=== PATIENT | male | born 1970 | race Caucasian/White ===

== ENCOUNTER 2020-07-07 17:36 | Inpatient (IN) ==
[2020-07-07] MEDS ORDERED: IOPAMIDOL 100 ML BOTTLE IV ONE (17:37)
[2020-07-07] MEDS ORDERED: LIDOCAINE 2% URO-JET 5 ML JEL.PF.APP UR ONE (18:09)
[2020-07-07] MEDS ORDERED: LIDOCAINE JEL 2% 1 TUBE 5ML TOPICAL ONE (18:11)
[2020-07-07] MEDS ORDERED: HYDROmorphone 0.5 MG/0.5 ML SYRINGE IM ONE (18:24)
[2020-07-07] MEDS ORDERED: HYDROmorphone 0.5 MG/0.5 ML SYRINGE IV ONE (18:41)
[2020-07-07 19:26] LABS: Basophils # (Auto) 0.04 K/mcL (0.00-0.30); Basophils % (Auto) 0.2 % (0.0-2.0); Eosinophils # (Auto) 0.06 K/mcL (0.00-0.70); Eosinophils % (Auto) 0.3 % (0.0-7.0); Granulocytes % (Auto) 86.3 % (38.0-78.0); Hematocrit 44.1 % (40.1-51.0); Hemoglobin 15.5 g/dL (13.7-17.5); Lymphocytes # (Auto) 1.18 K/mcL (1.50-4.80); Lymphocytes % (Auto) 6.3 % (15.5-49.0); Mean Cell Volume 85.3 fL (80.0-100.0); Mean Corpuscular HGB Conc 35.1 g/dL (31.0-36.0); Mean Platelet Volume 10.3 fL (7.4-10.4); Monocytes % (Auto) 6.9 % (1.0-12.0); Platelet Count 303 K/mcL (140-440); RBC 5.17 M/mcL (4.63-6.08); Red Cell Distribution Width 12.8 % (11.5-14.5); WBC 18.8 K/mcL (4.50-11.00)
[2020-07-07 19:31] LABS: Appearance,Urine CLEAR; Bacteria,Urine 0 /hpf (0); Bilirubin,Urine NEG (NEG); Color,Urine YELLOW; Culture Indicated,Urine NO; Glucose,Urine (UA) NEGATIVE (NEG); Ketones,Urine 5/TR mg/dL (NEG); Leukocyte Esterase,Urine NEG /uL (NEG); Mucus,Urine FEW /hpf (0); Nitrate,Urine NEG (NEG); Protein,Urine 30 mg/dL (NEG); Specific Gravity,Urine 1.019 (1.000-1.035); Urine Blood NEG mg/dL (<0.03); Urine Hyaline Cast 1 /lpf (0-2); Urine RBC 2 /hpf (0-1); Urine Squamous Epithelial Cell 0 /hpf (0-4); Urine WBC 2 /hpf (0-4); Urobilinogen,Urine NEG (NEG)
[2020-07-07] MEDS ORDERED: 0.9 % SODIUM CHLORIDE 1,000 ML IV ONE ×2 (19:38→21:14)
--- NOTE | 2020-07-07 19:45 | Emergency Department Note ---
Male Urogenital HPI General Chief complaint: Urogenital-Male Stated complaint: penis pain Time Seen by Provider: 07/07/20 18:01 Source: patient and EMS Mode of arrival: EMS Limitations: no limitations History of Present Illness HPI Narrative: Narrative: Patient is a 50-year-old male who comes into the emergency department today with plaint of pain at his urethra and penis. Patient reports that this began about 1 week ago. He soaked the penis with wet wipes and applied chewing tobacco to his penis to see if this would help. Patient reports that he has been unable to void since last night. He has had redness, and to his penis. He denies any trauma to his penis. Apparently police had went to his home today for an eviction notice, and they were concerned that perhaps he had injured himself with a self-inflicted injury with a metal lin. Patient denies this and denies any injuries to his penis. He has not applied any other items to his penis than the wet wipes and chewing tobacco. He denies being sexually active. He has not had any abdominal pain, flank pains, nausea, vomiting. He denies any fevers or chills. He has not had any cough, shortness of breath, or difficulty breathing. Related Data Home Medications Medication Instructions Recorded Confirmed No Known Home Meds 07/07/20 07/07/20 Allergies Allergy/AdvReac Type Severity Reaction Status Date / Time NO KNOWN DRUG ALLERGIES Allergy Unknown NO Uncoded 04/16/15 12:13 ALLERGIES Review of Systems ROS ROS Narrative: Narrative: Constitutional: Denies fever and chills Eyes: Denies vision change ENT ED: Denies ear pain and throat pain Cardiovascular: Denies chest pain and palpitations Respiratory: Denies shortness of breath and cough Gastrointestinal: Denies abdominal pain, nausea, vomiting, diarrhea and constipation Genitourinary: Reports as per HPI; Denies dysuria, frequency, testicular pain and testicular mass Musculoskeletal: Denies back pain and joint swelling Integumentary: Denies rash and lesions Neurological: Denies headache, weakness and confusion Psychiatric: Denies anxiety, depression, suicidal thoughts, homicidal thoughts, auditory hallucinations and visual hallucinations Endocrine: Denies fatigue and heat or cold intolerance Hematological/Lymphatic: Denies easy bleeding and easy bruising [facility] Narrative Patient History Narrative: Narrative: Medical/Surgical/Family History All Active Problems (Updated 07/07/20 @ 21:50 by KATIE Perez) Acute retention of urine (Acute) Social History Smoking Status: Current every day smoker Exam Narrative Narrative: Narrative: General Limitations: no limitations General appearance: alert and in no apparent distress Eye Eye: Present normal appearance, PERRL and EOMI; Absent scleral icterus and conjunctival injection ENT ENT: Present normal oropharynx and mucous membranes moist Neck Neck: Present normal inspection and full ROM; Absent meningismus and lymphadenopathy Chest Chest: Present normal inspection and symmetric chest wall rise Respiratory Respiratory: Present normal lung sounds bilaterally; Absent respiratory distress, wheezes, stridor, accessory muscle use and prolonged expiratory phase Cardiovascular Cardiovascular: Present normal rhythm, tachycardia, normal heart sounds, +S1 and +S2 Adbominal Abdominal: Present soft and normal bowel sounds; Absent distention, tenderness, guarding, rebound, rigidity, organomegaly and mass Expanded : Present other (Circumcised male without testicular tenderness or testicular swelling. No testicular nodules or epididymal tenderness. No scrotal swelling. No urethral discharge. At the ventral side of glans penis near the mo there is a 2 cm x 2 cm light yellow area of abrasion with light brown scab edges. There is erythema and mild swelling to the shaft of penis.) Extremities Extremities: Present normal inspection, full ROM and normal capillary refill; Absent pedal edema, pretibial edema and calf tenderness Back Back: Present full ROM; Absent CVA tenderness (R) and CVA tenderness (L) Neurological Neurological: Present alert, oriented X3 and CN II-XII intact Psychiatric Psychiatric: Present normal affect, normal mood, polite and pleasant; Absent homicidal ideation and suicidal ideation Skin Skin: Present warm, dry and normal color Course Course Course Narrative: 2154 - I was able to consult with urologist, Dr. Brito who is in [place] this evening about the patient. Gave a description of the assessment findings on the penis to Dr. Brito, and he feels that may need to look for other sources of infection that would be causing the high white count and elevated lactic acid. He did recommend to perhaps obtain a noncontrast CT of abdomen pelvis and to particularly look for Airgas within the penis or scrotum. 2214 - Report given to Dr. Luna in the emergency department who will assume care at 2200 due to shift change. I have ordered 1 g Rocephin IV for the patient to be given as well as ordered the noncontrast CT of abdomen and pelvis. Patient resting comfortably at this time in room E3. Vital Signs Vital signs: Vital Signs Temperature 97.6 F 07/07/20 17:36 Pulse Rate 128 H 07/07/20 17:36 Respiratory Rate 24 H 07/07/20 17:36 Blood Pressure 133/77 07/07/20 17:36 Pulse Oximetry (%) 99 07/07/20 17:36 Temperature 97.6 F 07/07/20 17:36 Pulse Rate 118 H 07/07/20 22:16 Respiratory Rate 18 07/07/20 21:07 Blood Pressure 158/93 07/07/20 22:16 Pulse Oximetry (%) 95 07/07/20 22:16 [facility] MDM Narrative Medical decision making narrative: Narrative: Reviewed the chest x-ray today with Dr. Luna that does not show any definite sign of pneumonia. Patient's white count today is 18.8 lactic acid 4.8. Potassium was low at 3.0 and gave patient 40 mEq of potassium by mouth. Patient has tachycardia and received 2 L normal saline. Lab Data Result diagrams: 07/07/20 18:40 07/07/20 18:40 Labs: Lab Results 07/07/20 07/07/20 07/07/20 Range/Units 18:39 18:39 18:40 WBC 18.8 H (4.50-11.00) K/mcL RBC 5.17 (4.63-6.08) M/mcL Hgb 15.5 (13.7-17.5) g/dL Hct 44.1 (40.1-51.0) % MCV 85.3 (80.0-100.0) fL MCH 30.0 (26.0-34.0) pg MCHC 35.1 (31.0-36.0) g/dL RDW 12.8 (11.5-14.5) % Plt Count 303 (140-440) K/mcL MPV 10.3 (7.4-10.4) fL Gran % 86.3 H (38.0-78.0) % Lymph % (Auto) 6.3 L (15.5-49.0) % [place] % (Auto) 6.9 (1.0-12.0) % Eos % (Auto) 0.3 (0.0-7.0) % Baso % (Auto) 0.2 (0.0-2.0) % Gran # 16.23 H (1.80-8.00) K/mcL Lymph # (Auto) 1.18 L (1.50-4.80) K/mcL [place] # (Auto) 1.30 H (0.10-0.90) K/mcL Eos # (Auto) 0.06 (0.00-0.70) K/mcL Baso # (Auto) 0.04 (0.00-0.30) K/mcL VBG Lactic Acid (0.5-2.0) mmol/L Sodium (133-145) mmol/L Potassium (3.3-5.1) mmol/L Chloride (96-108) mmol/L Carbon Dioxide (22-30) mmol/L Anion Gap (8-16) BUN (6-20) mg/dl Creatinine (0.7-1.2) mg/dl GFR Calculation Glucose (70-105) mg/dL Calcium (8.6-10.4) mg/dl Total Bilirubin (0.0-1.0) mg/dL AST (0-37) U/l ALT (0-40) U/l Alkaline Phosphatase (39-117) U/L Total Protein (5.9-8.4) gm/dL Albumin (3.2-5.2) gm/dL Globulin (2.2-3.7) gm/dL Albumin/Globulin Ratio (1.0-2.3) Urine Color Yellow Urine Appearance Clear Urine pH 7.0 (5.0-9.0) Ur Specific [place] 1.019 (1.000-1.035) Urine Protein 30 A (NEG) mg/dL Urine Glucose (UA) Negative (NEG) mg/dL Urine Ketones 5/tr A (NEG) mg/dL Urine Occult Blood Neg (<0.03) mg/dL Urine Nitrate Neg (NEG) Urine Bilirubin Neg (NEG) mg/dL Urine Urobilinogen Neg (NEG) mg/dL Ur Leukocyte Esterase Neg (NEG) /uL Urine RBC 2 H (0-1) /hpf Urine WBC 2 (0-4) /hpf Ur Squamous Epith Cells 0 (0-4) /hpf Urine Bacteria 0 (0) /hpf Hyaline Casts 1 (0-2) /lpf Urine Mucus Few (0) /hpf Ur Culture Indicated? No Syphilis Serology Non-reactive (NONREACTIVE) 07/07/20 07/07/20 Range/Units 18:40 19:51 WBC (4.50-11.00) K/mcL RBC (4.63-6.08) M/mcL Hgb (13.7-17.5) g/dL Hct (40.1-51.0) % MCV (80.0-100.0) fL MCH (26.0-34.0) pg MCHC (31.0-36.0) g/dL RDW (11.5-14.5) % Plt Count (140-440) K/mcL MPV (7.4-10.4) fL Gran % (38.0-78.0) % Lymph % (Auto) (15.5-49.0) % [place] % (Auto) (1.0-12.0) % Eos % (Auto) (0.0-7.0) % Baso % (Auto) (0.0-2.0) % Gran # (1.80-8.00) K/mcL Lymph # (Auto) (1.50-4.80) K/mcL [place] # (Auto) (0.10-0.90) K/mcL Eos # (Auto) (0.00-0.70) K/mcL Baso # (Auto) (0.00-0.30) K/mcL VBG Lactic Acid 4.8 H* (0.5-2.0) mmol/L Sodium 143 (133-145) mmol/L Potassium 3.0 L (3.3-5.1) mmol/L Chloride 103 (96-108) mmol/L Carbon Dioxide 18 L (22-30) mmol/L Anion Gap 22.0 H (8-16) BUN 10 (6-20) mg/dl Creatinine 1.3 H (0.7-1.2) mg/dl GFR Calculation 64 Glucose 96 (70-105) mg/dL Calcium 9.5 (8.6-10.4) mg/dl Total Bilirubin 0.5 (0.0-1.0) mg/dL AST 27 (0-37) U/l ALT 30 (0-40) U/l Alkaline Phosphatase 51 (39-117) U/L Total Protein 6.7 (5.9-8.4) gm/dL Albumin 3.9 (3.2-5.2) gm/dL Globulin 2.8 (2.2-3.7) gm/dL Albumin/Globulin Ratio 1.4 (1.0-2.3) Urine Color Urine Appearance Urine pH (5.0-9.0) Ur Specific [place] (1.000-1.035) Urine Protein (NEG) mg/dL Urine Glucose (UA) (NEG) mg/dL Urine Ketones (NEG) mg/dL Urine Occult Blood (<0.03) mg/dL Urine Nitrate (NEG) Urine Bilirubin (NEG) mg/dL Urine Urobilinogen (NEG) mg/dL Ur Leukocyte Esterase (NEG) /uL Urine RBC (0-1) /hpf Urine WBC (0-4) /hpf Ur Squamous Epith Cells (0-4) /hpf Urine Bacteria (0) /hpf Hyaline Casts (0-2) /lpf Urine Mucus (0) /hpf Ur Culture Indicated? Syphilis Serology (NONREACTIVE) Discharge Plan Patient/Caregiver Discharge Instructions Pt seen by INSPECTOR AIDE/PA only: No Clinical Impression: Acute retention of urine Patient Disposition: Still a Patient Follow up with: Maged Everett MD [Primary Care Provider] - Prescriptions: No Action No Known Home Meds RF: 0
[2020-07-07 19:53] LABS: ALT/SGPT 30 U/l (0-40); AST/SGOT 27 U/l (0-37); Albumin 3.9 gm/dL (3.2-5.2); Albumin/Globulin Ratio 1.4 (1.0-2.3); Alkaline Phosphatase 51 U/L (39-117); Bilirubin,Total 0.5 mg/dL (0.0-1.0); Blood Urea Nitrogen 10 mg/dl (6-20); Calcium 9.5 mg/dl (8.6-10.4); Carbon Dioxide 18 mmol/L (22-30); Chloride 103 mmol/L (96-108); Globulin 2.8 gm/dL (2.2-3.7); Glomerular Filtration Rate 64; Glucose 96 mg/dL (70-105)
[2020-07-07] MEDS ORDERED: POTASSIUM CHLORIDE 20 MEQ TABLET PO ONE (20:36)
[2020-07-07] MEDS ORDERED: cefTRIAXone 1 GM VIAL IV ONE (22:11)
[2020-07-08] MEDS ORDERED: ONDANSETRON 4 MG/2 ML VIAL IV PRN (01:27)
[2020-07-08] MEDS ORDERED: ACETAMINOPHEN 325 MG TABLET PO PRN (01:27)
[2020-07-08] MEDS ORDERED: cefTRIAXone 1 GM in DEXTROSE 5% IN WATER 50 ML IV ONE (01:27)
[2020-07-08] MEDS ORDERED: HYDROcodone/APAP 5/325MG TABLET PO ONE (01:40)
[2020-07-08] MEDS: 0.9 % SODIUM CHLORIDE 1,000 ML IV SCH ×3 (02:03→18:24)
--- NOTE | 2020-07-08 03:19 | Emergency Department Note ---
Male Urogenital HPI General Chief complaint: Urogenital-Male Stated complaint: penis pain Time Seen by Provider: 07/07/20 18:01 Source: patient and EMS Mode of arrival: EMS Limitations: no limitations History of Present Illness HPI Narrative: Narrative: See the dictated history and physical by KATIE Cisneros. I have spoken with him multiple times about this individual. He is here because of urinary retention and abdominal discomfort but was found to have a white count of 18, lactic acid 4.8 and to be tachycardic. Related Data Home Medications Medication Instructions Recorded Confirmed No Known Home Meds 07/07/20 07/08/20 Allergies Allergy/AdvReac Type Severity Reaction Status Date / Time NO KNOWN DRUG ALLERGIES Allergy Unknown NO Uncoded 04/16/15 12:13 ALLERGIES Review of Systems ROS ROS Narrative: Narrative: Genitourinary: Reports as per HPI; Denies dysuria, frequency, testicular pain and testicular mass PFSH Narrative Patient History Narrative: Narrative: Medical/Surgical/Family History All Active Problems (Updated 07/08/20 @ 01:11 by Robb Luna DO) Acute retention of urine (Acute) Elevated WBC count (Acute) Elevated lactic acid level (Acute) Sinus tachycardia (Acute) Cellulitis, penis (Acute) Penile lesion (Acute) Social History Smoking Status: Smokeless tobacco Exam Narrative Narrative: Narrative: General: Alert and interactive. Eyes: Extraocular muscles intact. Abdomen: Soft and nontender. External genitalia: Moderate erythema of the penis and scrotum. There are some sores mentioned previously on the ventral aspect and left side-lying areas from the urethral meatus down the anterior ventral aspect and some laterally. They almost look like soft burn eschars. Extremities: No cyanosis or clubbing. Moves all extremities. Psych: Rather serious. No agitation or psychomotor retardation. General Limitations: no limitations General appearance: alert and in no apparent distress Course Vital Signs Vital signs: Vital Signs Temperature 97.6 F 07/07/20 17:36 Pulse Rate 128 H 07/07/20 17:36 Respiratory Rate 24 H 07/07/20 17:36 Blood Pressure 133/77 07/07/20 17:36 Pulse Oximetry (%) 99 07/07/20 17:36 Temperature 98.8 F 07/08/20 02:10 Pulse Rate 117 H 07/08/20 01:00 Respiratory Rate 22 07/08/20 02:10 Blood Pressure 153/92 07/08/20 02:10 Pulse Oximetry (%) 99 07/08/20 02:10 MDM MDM Narrative Medical decision making narrative: Narrative: I am following up after Celestino Leo returns home. Patient's white count 18, lactic acid 4.8, tachycardia in 125-[address] being done because of conversation Celestino had with urologist, Dr. Brito, suggesting that the described cellulitis of the penis etc. would not explain the findings of that high of a white count, lactic acid elevation and tachycardia. A CT scan of the abdomen and pelvis was ordered and comes back with no acute abdominal pelvic pathology. 11:54 PM - I discussed his case with Dr. Kerwin Treviño, hospitalist, who asked about the prostate gland which was not commented on directly or specifically in the CT report. UA was relatively unremarkable. Creatinine slightly elevated at 1.3. He accepts this patient's care as hospitalist. A repeat lactic acid and pro calcitonin are also added to the orders. Lab Data Result diagrams: 07/07/20 18:40 07/07/20 18:40 Labs: Lab Results 07/07/20 07/07/20 07/07/20 Range/Units 18:39 18:39 18:40 WBC 18.8 H (4.50-11.00) K/mcL RBC 5.17 (4.63-6.08) M/mcL Hgb 15.5 (13.7-17.5) g/dL Hct 44.1 (40.1-51.0) % MCV 85.3 (80.0-100.0) fL MCH 30.0 (26.0-34.0) pg MCHC 35.1 (31.0-36.0) g/dL RDW 12.8 (11.5-14.5) % Plt Count 303 (140-440) K/mcL MPV 10.3 (7.4-10.4) fL Gran % 86.3 H (38.0-78.0) % Lymph % (Auto) 6.3 L (15.5-49.0) % [place] % (Auto) 6.9 (1.0-12.0) % Eos % (Auto) 0.3 (0.0-7.0) % Baso % (Auto) 0.2 (0.0-2.0) % Gran # 16.23 H (1.80-8.00) K/mcL Lymph # (Auto) 1.18 L (1.50-4.80) K/mcL [place] # (Auto) 1.30 H (0.10-0.90) K/mcL Eos # (Auto) 0.06 (0.00-0.70) K/mcL Baso # (Auto) 0.04 (0.00-0.30) K/mcL VBG Lactic Acid (0.5-2.0) mmol/L Sodium (133-145) mmol/L Potassium (3.3-5.1) mmol/L Chloride (96-108) mmol/L Carbon Dioxide (22-30) mmol/L Anion Gap (8-16) BUN (6-20) mg/dl Creatinine (0.7-1.2) mg/dl GFR Calculation Glucose (70-105) mg/dL Calcium (8.6-10.4) mg/dl Total Bilirubin (0.0-1.0) mg/dL AST (0-37) U/l ALT (0-40) U/l Alkaline Phosphatase (39-117) U/L Total Protein (5.9-8.4) gm/dL Albumin (3.2-5.2) gm/dL Globulin (2.2-3.7) gm/dL Albumin/Globulin Ratio (1.0-2.3) Urine Color Yellow Urine Appearance Clear Urine pH 7.0 (5.0-9.0) Ur Specific [place] 1.019 (1.000-1.035) Urine Protein 30 A (NEG) mg/dL Urine Glucose (UA) Negative (NEG) mg/dL Urine Ketones 5/tr A (NEG) mg/dL Urine Occult Blood Neg (<0.03) mg/dL Urine Nitrate Neg (NEG) Urine Bilirubin Neg (NEG) mg/dL Urine Urobilinogen Neg (NEG) mg/dL Ur Leukocyte Esterase Neg (NEG) /uL Urine RBC 2 H (0-1) /hpf Urine WBC 2 (0-4) /hpf Ur Squamous Epith Cells 0 (0-4) /hpf Urine Bacteria 0 (0) /hpf Hyaline Casts 1 (0-2) /lpf Urine Mucus Few (0) /hpf Ur Culture Indicated? No Syphilis Serology Non-reactive (NONREACTIVE) 07/07/20 07/07/20 07/08/20 Range/Units 18:40 19:51 00:05 WBC (4.50-11.00) K/mcL RBC (4.63-6.08) M/mcL Hgb (13.7-17.5) g/dL Hct (40.1-51.0) % MCV (80.0-100.0) fL MCH (26.0-34.0) pg MCHC (31.0-36.0) g/dL RDW (11.5-14.5) % Plt Count (140-440) K/mcL MPV (7.4-10.4) fL Gran % (38.0-78.0) % Lymph % (Auto) (15.5-49.0) % [place] % (Auto) (1.0-12.0) % Eos % (Auto) (0.0-7.0) % Baso % (Auto) (0.0-2.0) % Gran # (1.80-8.00) K/mcL Lymph # (Auto) (1.50-4.80) K/mcL [place] # (Auto) (0.10-0.90) K/mcL Eos # (Auto) (0.00-0.70) K/mcL Baso # (Auto) (0.00-0.30) K/mcL VBG Lactic Acid 4.8 H* 2.6 H (0.5-2.0) mmol/L Sodium 143 (133-145) mmol/L Potassium 3.0 L (3.3-5.1) mmol/L Chloride 103 (96-108) mmol/L Carbon Dioxide 18 L (22-30) mmol/L Anion Gap 22.0 H (8-16) BUN 10 (6-20) mg/dl Creatinine 1.3 H (0.7-1.2) mg/dl GFR Calculation 64 Glucose 96 (70-105) mg/dL Calcium 9.5 (8.6-10.4) mg/dl Total Bilirubin 0.5 (0.0-1.0) mg/dL AST 27 (0-37) U/l ALT 30 (0-40) U/l Alkaline Phosphatase 51 (39-117) U/L Total Protein 6.7 (5.9-8.4) gm/dL Albumin 3.9 (3.2-5.2) gm/dL Globulin 2.8 (2.2-3.7) gm/dL Albumin/Globulin Ratio 1.4 (1.0-2.3) Urine Color Urine Appearance Urine pH (5.0-9.0) Ur Specific [place] (1.000-1.035) Urine Protein (NEG) mg/dL Urine Glucose (UA) (NEG) mg/dL Urine Ketones (NEG) mg/dL Urine Occult Blood (<0.03) mg/dL Urine Nitrate (NEG) Urine Bilirubin (NEG) mg/dL Urine Urobilinogen (NEG) mg/dL Ur Leukocyte Esterase (NEG) /uL Urine RBC (0-1) /hpf Urine WBC (0-4) /hpf Ur Squamous Epith Cells (0-4) /hpf Urine Bacteria (0) /hpf Hyaline Casts (0-2) /lpf Urine Mucus (0) /hpf Ur Culture Indicated? Syphilis Serology (NONREACTIVE) Discharge Plan Patient/Caregiver Discharge Instructions Pt seen by COMPENSATION COORDINATOR/PA only: No Clinical Impression: Acute retention of urine, Elevated lactic acid level, Sinus tachycardia, Cellulitis, penis, Penile lesion Elevated WBC count Qualifiers: Leukocytosis type: unspecified Qualified Code(s): D72.829 - Elevated white blood cell count, unspecified Patient Disposition: Xfer As Inpt ([facility]) Discharge Date/Time: 07/08/20 01:12 Interventions Interventions: Condition At Discharge/Admit (ED) Last Done: 07/08/20 01:22
[2020-07-08] MEDS ORDERED: cefTRIAXone 1 GM VIAL ONE (03:28)
[2020-07-08] MEDS: 0.9 % SODIUM CHLORIDE 10 ML SYRINGE IV SCH ×3 (05:03→20:40)
--- NOTE | 2020-07-08 05:36 | XRay Report ---
INDICATION: Leukocytosis TECHNIQUE: PA and lateral upright chest x-ray COMPARISON: None FINDINGS: Lungs: Lungs are negative. No focal pulmonary parenchymal infiltrate or mass Heart, vascular: No significant cardiomegaly. Pulmonary vascularity is normal. No pulmonary edema or pulmonary congestion Mediastinum, manfred: No mediastinal widening. No hilar mass Pleura:No pleural fluid. No pleural-based mass or calcification Thoracic spine, ribs: No thoracic compression fracture. Ribs are negative. No fracture. No lytic lesion IMPRESSION: Negative PA and lateral chest x-ray Interpreted and Authenticated by: Woo Lala 07/08/20
--- NOTE | 2020-07-08 05:45 | Cat Scan Report ---
INDICATION: penile infection/swelling COMPARISON: Previous CT scan dated 08/13/2012 TECHNIQUE: Axial images were obtained through the abdomen and pelvis. Sagittally and coronally reformatted images. 80 mL Isovue 370 injected intravenously. Oral contrast material was not administered FINDINGS: Examination was initially interpreted by [facility] Lung bases:Negative. No pulmonary parenchymal nodule. No pleural fluid or pericardial fluid Liver:Negative. No focal intrahepatic mass. No focal abnormality. Liver contour is smooth. No evidence for cirrhosis Gallbladder, bilary:No calcified gallstones. No gallbladder wall thickening. No dilated intra or extrahepatic bile ducts. Spleen:No splenomegaly. Normal enhancement of splenic and portal veins. Pancreas:No pancreatic mass. No peripancreatic abnormality Adrenal glands:Negative Kidneys, ureters, bladder: Central parapelvic cyst in the left kidney. No solid renal mass. No hydronephrosis. No obstructing or nonobstructing calculi. There is no hydroureter. No ureteral stone There is a Marcial catheter within the urinary bladder Gastrointestinal:No detectable colonic mass. There is no diverticulitis. Small bowel is negative. No mechanical small bowel obstruction. Stomach and duodenum are unremarkable Appendix: The appendix is Vascular:Negative abdominal aorta. Superior mesenteric artery and celiac trunk are normal. Normal opacification of the inferior mesenteric artery Lymphatic:No retroperitoneal or mesenteric adenopathy Mesentery, peritoneum: No free intraperitoneal fluid. No mesenteric or retroperitoneal mass. Reproductive:Prostate is not enlarged. Provided history describes penile infection. The penis is incompletely imaged. There may be penile edema but this is not well visualized. Musculoskeletal:Degenerative disc disease at L4-5 and L5-S1. There is left convex lumbar scoliosis IMPRESSION: 1. Degenerative disc disease 2. Left renal parapelvic cyst The exam was performed using radiation dose optimization techniques including, but not limited to, automated exposure control, adjustment of the mA and/or kV according to patient size and use of iterative reconstruction technique. Interpreted and Authenticated by: Woo Lala 07/08/20
--- NOTE | 2020-07-08 06:45 | Internal Med History&Physical ---
HPI History of Present Illness Patient information: Note initiated : 07/08/20 at 6:45 am Service Date, if different from initiated Date: [] Patient: True Bassett a 50 y/o M admitted on 07/08/20 for penis pain. Chief Complaint: Sepsis History of present illness: Mr. Bassett is a 50 year old M with minimal past medical history who presents to the ED with complaints of being unable to urinate. History is obtained in speaking with the patient. Case has been discussed with Dr. Renu wharton in the ED as well. Patient states that a week ago Monday, 9 days ago he had a sharp stinging pain throughout the shaft of his penis that went deeper into the groin. It woke him up. It lasted for about 20 minutes then resolved. For the rest of the week he was pain free until Monday last. During that time he did have some diarrhea which stopped on its own. On Monday he noted that he developed intermittent leakage of urine, awakening with a wet spot on his underwear. He started to notice a whitish discharge and what he described as a "black spot", apparently within the meatus of the urethra. He cleaned his penis with a wet wipe. He was concerned that he had a tapeworm that was in his penis, as he thought he could see these black spots with a "second layer skin", meaning that there was something within the urethra. This continued through the weekend. On Monday, he noticed swelling of his penis. Concerned that this may be parasitic, somewhat I told him that if chewing tobacco on it it may drive the parasite out. He placed chewing tobacco on the glans of his penis and on the meatus. This was quite painful. Some of the spots on the glans, at about the 4 o'clock position blackened over. He became quite painful, drank a couple shots of vodka and then states that he lost consciousness about 1230. He woke up at about 4:30 PM, was unable to urinate. He reports that he was told that he had been yelling at his parents. Police were called (it appears he was served some eviction papers during that timeframe). He tried to urinate, was on the toilet and fell off the toilet. He is brought to the ED by EMS. In the emergency department he is noted to have swollen erythematous glands. Marcial catheter was eventually passed. He drained over 500 mL of clear urine. Urine analysis was generally unremarkable. He had CT of the abdomen and pelvis which did not show acute findings. The case was discussed with the on-call urologist in [place], who felt this did not represent a Oracio's gangrene. Evaluation revealed white count of 18,000 however, lactate was elevated at 4.8. He was admitted for possible sepsis just after midnight. Patient denies any fever, is felt chilled intermittently. He denies any recent sexual partners. He notes he has had difficulty sleeping. He has chronic rhinorrhea which is unchanged. He thinks his vision may have gotten a bit blurry recently. He is intermittently had some tingling in his chest that goes up into his face. He has had no dyspnea, no cough, no sputum production. No chest pain or tightness. No abdominal pain, no nausea or vomiting. No current diarrhea. He did have some dysuria associated with his lesions. Review of Systems All systems: reviewed and no additional remarkable complaints except as stated PFSH PFSH All Active Problems (Updated 07/08/20 @ 08:15 by Nadia Lal MD) Acute retention of urine (Acute) Elevated WBC count (Acute) Elevated lactic acid level (Acute) Sinus tachycardia (Acute) Cellulitis, penis (Acute) Penile lesion (Acute) Medical History (Updated 07/08/20 @ 08:15 by Nadia Lal MD) Femur fracture, right (Acute) Surgical History (Updated 07/08/20 @ 08:15 by Nadia Lal MD) S/P ORIF (open reduction internal fixation) fracture (Acute) Family History (Updated 07/08/20 @ 08:16 by Nadia Lal MD) Mother Hypertension Atrial fibrillation Father Hypertension Prostate cancer Social History (Updated 07/08/20 @ 08:17 by Nadia Lal MD) smoking status: Smokeless tobacco alcohol intake frequency: a few times a month MEDS/ALLERGIES Home Medications and Allergies Home Medications Medication Instructions Recorded Confirmed Type No Known Home Meds 07/07/20 07/08/20 History Allergies Allergy/AdvReac Type Severity Reaction Status Date / Time No Known Drug Allergies Allergy Unverified 07/08/20 06:06 EXAM Constitutional Vitals: Temp Pulse Resp BP Pulse Ox 98.8 F 112 H 24 H 164/99 97 07/08/20 03:57 07/08/20 03:57 07/08/20 03:57 07/08/20 03:57 07/08/20 03:57 GENERAL: Alert, oriented, in no acute distress. Cooperative, appears stated age. HEENT: Atraumatic. PERRL, conjunctiva clear, no scleral icterus. Hearing grossly intact. Oropharynx with moist mucous membranes. No vesicular lesions on the lips. NECK: Supple without meningismus, no thyromegaly RESPIRATORY: Breath sounds clear bilaterally without wheezes or rhonchi. Respiratory effort is unlabored. CARDIOVASCULAR: Regular rate and rhythm, no murmur gallop or rub. No peripheral edema. Carotid pulses 2+ GI: Abdomen soft, nontender, no guarding or rebound. Bowel sounds are present. No hepatosplenomegaly. : Circumcised male with Marcial catheter in place. Glans erythematous with mild edema. 2 approximately 3 mm dark lesions in the 5:00 location to the meatus. Another, approximately 5 to 6 mm lesion along the edge of the glans about 8:00 from the meatus. This is covered by a fibrinous exudate. Mild tenderness with palpation. Scrotum with some erythema but nontender, testicles nontender. LYMPHATIC: No cervical or supraclavicular lymphadenopathy MUSCULOSKELETAL: No joint erythema or swelling, normal range of motion in all extremities. SKIN: Except as described above in , otherwise intact, warm, dry. Skin turgor normal. NEUROLOGIC: Cranial nerves II through XII grossly intact. Muscle mass normal. Strength 5/5 in the upper and lower extremities. Sensation intact to light touch bilaterally. PSYCHIATRIC: Alert, oriented x3, normal mood and affect, normal insight. DATA Data Completed and Pending Labs: Labs from last 24 hours 07/08/20 07/08/20 07/08/20 18:40 05:35 05:35 WBC Pending RBC Pending Hgb Pending Hct Pending MCV Pending MCH Pending MCHC Pending RDW Pending Plt Count Pending MPV Pending Gran % Lymph % (Auto) Peach % (Auto) Eos % (Auto) Baso % (Auto) Gran # Lymph # (Auto) [place] # (Auto) Eos # (Auto) Baso # (Auto) VBG Lactic Acid Sodium Pending Potassium Pending Chloride Pending Carbon Dioxide Pending Anion Gap Pending BUN Pending Creatinine Pending GFR Calculation Pending Glucose Pending Uric Acid Pending Calcium Pending Phosphorus Pending Magnesium Pending Total Bilirubin Pending Direct Bilirubin Pending GGT Pending AST Pending ALT Pending Alkaline Phosphatase Pending Lactate Dehydrogenase Pending Total Protein Pending Albumin Pending Globulin Pending Albumin/Globulin Ratio Pending Triglycerides Pending Procalcitonin 0.08 Urine Color Urine Appearance Urine pH Ur Specific [place] Urine Protein Urine Glucose (UA) Urine Ketones Urine Occult Blood Urine Nitrate Urine Bilirubin Urine Urobilinogen Ur Leukocyte Esterase Urine RBC Urine WBC Ur Squamous Epith Cells Urine Bacteria Hyaline Casts Urine Mucus Ur Culture Indicated? Syphilis Serology 07/08/20 07/07/20 07/07/20 00:05 19:51 18:40 WBC RBC Hgb Hct MCV MCH MCHC RDW Plt Count MPV Gran % Lymph % (Auto) Peach % (Auto) Eos % (Auto) Baso % (Auto) Gran # Lymph # (Auto) Peach # (Auto) Eos # (Auto) Baso # (Auto) VBG Lactic Acid 2.6 H 4.8 H* Sodium 143 Potassium 3.0 L Chloride 103 Carbon Dioxide 18 L Anion Gap 22.0 H BUN 10 Creatinine 1.3 H GFR Calculation 64 Glucose 96 Uric Acid Calcium 9.5 Phosphorus Magnesium Total Bilirubin 0.5 Direct Bilirubin GGT AST 27 ALT 30 Alkaline Phosphatase 51 Lactate Dehydrogenase Total Protein 6.7 Albumin 3.9 Globulin 2.8 Albumin/Globulin Ratio 1.4 Triglycerides Procalcitonin Urine Color Urine Appearance Urine pH Ur Specific [place] Urine Protein Urine Glucose (UA) Urine Ketones Urine Occult Blood Urine Nitrate Urine Bilirubin Urine Urobilinogen Ur Leukocyte Esterase Urine RBC Urine WBC Ur Squamous Epith Cells Urine Bacteria Hyaline Casts Urine Mucus Ur Culture Indicated? Syphilis Serology 07/07/20 07/07/20 07/07/20 18:40 18:39 18:39 WBC 18.8 H RBC 5.17 Hgb 15.5 Hct 44.1 MCV 85.3 MCH 30.0 MCHC 35.1 RDW 12.8 Plt Count 303 MPV 10.3 Gran % 86.3 H Lymph % (Auto) 6.3 L Peach % (Auto) 6.9 Eos % (Auto) 0.3 Baso % (Auto) 0.2 Gran # 16.23 H Lymph # (Auto) 1.18 L Peach # (Auto) 1.30 H Eos # (Auto) 0.06 Baso # (Auto) 0.04 VBG Lactic Acid Sodium Potassium Chloride Carbon Dioxide Anion Gap BUN Creatinine GFR Calculation Glucose Uric Acid Calcium Phosphorus Magnesium Total Bilirubin Direct Bilirubin GGT AST ALT Alkaline Phosphatase Lactate Dehydrogenase Total Protein Albumin Globulin Albumin/Globulin Ratio Triglycerides Procalcitonin Urine Color Yellow Urine Appearance Clear Urine pH 7.0 Ur Specific [place] 1.019 Urine Protein 30 A Urine Glucose (UA) Negative Urine Ketones 5/tr A Urine Occult Blood Neg Urine Nitrate Neg Urine Bilirubin Neg Urine Urobilinogen Neg Ur Leukocyte Esterase Neg Urine RBC 2 H Urine WBC 2 Ur Squamous Epith Cells 0 Urine Bacteria 0 Hyaline Casts 1 Urine Mucus Few Ur Culture Indicated? No Syphilis Serology Non-reactive Imaging and Cardiology CT scan - abdomen: Status: image reviewed by me Additional comments: IMPRESSION: 1. Degenerative disc disease 2. Left renal parapelvic cyst Chest x-ray: Status: image reviewed by me Additional comments: Clear lung bradford. A/P Assessment and plan (1) Penile lesion: Status: Acute Narrative A/P Narrative: 50-year-old male presenting with about 4 days of whitish exudate and lesions on the glans penis, associated with progressive edema. Penile lesion. Patient has 2 lesions at approximately 5:00 from the meatus, another larger one at about 8:00. There is blackish discoloration of the 2 smaller lesions, fibrinous exudate on the larger. Case discussed with Dr. Mcleod, infectious disease. Concern for possible HSV infection. Other STIs in the differential. Does have reports of some whitish discharge. Patient concerned there may be a tapeworm, doubt that in this situation, particularly no evidence of infection in the urinary bladder with unremarkable urine analysis. Initial concern for surrounding cellulitis and possible sepsis with an elevated white count. At this point, patient looks well and his labs are starting to normalize. Plan: Swab for HSV 1 and 2, begin therapy if positive. Follow-up GC/chlamydia NAAT that is pending Check RPR Check HIV Stop antibacterials. Rule out sepsis. Leukocytosis, elevated lactate at presentation with anion gap metabolic acidosis. All of these are improving.. However on further history the patient had ingested alcohol, was down for 4 hours by his account. Cannot rule out other coingestions. That may explain his leukocytosis and lactic acidosis. Lactate was normalizing with fluids. Appears nontoxic on exam. No other source of infection apparent. Stopping antibiotics Follow-up cultures Send urine tox screen Send CPK rule out rhabdomyolysis Monitor Elevated creatinine. Creatinine 1.3 at presentation, is normalized with fluids. Again suggest that patient may have had a prerenal state with some dehydration which could have contributed to a lactic acidosis. Monitor We will continue to monitor patient throughout the day for any other symptoms. Infectious disease would like to be made aware of any positive lab tests as noted above. He may be stable for discharge tomorrow. CODE STATUS: Full code Prophylaxis: Lovenox Time Spent With Patient Time: Total time spent is greater than 50% in coordination of care (as documented) at patient's floor/unit and/or counseling patient: QUALITY Stroke Symptom Onset Unknown: No VTE Deep Vein Thrombosis/Pulmonary Embolism Present on Admission: No
[2020-07-08 07:05] LABS: Basophils # (Auto) 0.04 K/mcL (0.00-0.30); Basophils % (Auto) 0.4 % (0.0-2.0); Eosinophils # (Auto) 0.34 K/mcL (0.00-0.70); Eosinophils % (Auto) 3.6 % (0.0-7.0); Granulocytes % (Auto) 68.2 % (38.0-78.0); Hematocrit 41.3 % (40.1-51.0); Lymphocytes # (Auto) 1.59 K/mcL (1.50-4.80); Lymphocytes % (Auto) 16.8 % (15.5-49.0); Mean Cell Volume 88.6 fL (80.0-100.0); Mean Corpuscular HGB Conc 33.9 g/dL (31.0-36.0); Mean Platelet Volume 10.4 fL (7.4-10.4); Monocytes # (Auto) 1.04 K/mcL (0.10-0.90); Platelet Count 267 K/mcL (140-440); RBC 4.66 M/mcL (4.63-6.08); Red Cell Distribution Width 13.3 % (11.5-14.5); WBC 9.5 K/mcL (4.50-11.00)
[2020-07-08 07:39] LABS: ALT/SGPT 20 U/l (0-40); AST/SGOT 14 U/l (0-37); Albumin 3.5 gm/dL (3.2-5.2); Albumin/Globulin Ratio 1.5 (1.0-2.3); Alkaline Phosphatase 42 U/L (39-117); Bilirubin,Direct < 0.2 mg/dL (0.0-0.3); Bilirubin,Total 0.6 mg/dL (0.0-1.0); Blood Urea Nitrogen 8 mg/dl (6-20); Carbon Dioxide 21 mmol/L (22-30); Chloride 107 mmol/L (96-108); Globulin 2.4 gm/dL (2.2-3.7); Glomerular Filtration Rate 100; Glucose 84 mg/dL (70-105); Lactate Dehydrogenase 122 U/L (94-250); Phosphorous 3.4 mg/dL (2.7-4.5); Triglycerides 82 mg/dl (<150); Uric Acid 5.9 mg/dL (2.5-8.0)
[2020-07-08] MEDS: HYDROcodone/APAP 5/325MG TABLET PO PRN ×2 (10:10→20:39)
[2020-07-08] MEDS: DOCUSATE SODIUM 100 MG CAPSULE PO SCH ×2 (10:16→20:40)
[2020-07-08] MEDS: ENOXAPARIN 40 MG/0.4 ML SYRINGE SQ SCH (10:16)
[2020-07-08 10:18] LABS: Amphetamine Screen,Urine SUSPECT POSITIVE (NONDETECTED); Barbiturate Screen,Urine NONE DETECTED (NONDETECTED); Benzodiazepines Screen,Urine NONE DETECTED (NONDETECTED); Cannabinoid Screen,Urine NONE DETECTED (NONDETECTED); Cocaine Screen,Urine NONE DETECTED (NONDETECTED); Opiate Screen,Urine NONE DETECTED (NONDETECTED); Oxycodone, Urine Screen NONE DETECTED (NONDETECTED); Phencyclidine Screen,Urine NONE DETECTED (NONDETECTED)
--- NOTE | 2020-07-08 14:22 | Internal Med Progress Note ---
SUBJECTIVE Subjective Patient information: Note initiated : 07/08/20 at 2:17 pm Service Date, if different from initiated Date: [] Patient: True Bassett a 50 y/o M admitted on 07/08/20 for penis pain. Chief Complaint: [] Interval history: Mr. Bassett is a 50 year old M with minimal past medical history who presents to the ED with complaints of being unable to urinate. History is obtained in speaking with the patient. Case has been discussed with Dr. Renu wharton in the ED as well. Patient states that a week ago Monday, 9 days ago he had a sharp stinging pain throughout the shaft of his penis that went deeper into the groin. It woke him up. It lasted for about 20 minutes then resolved. For the rest of the week he was pain free until Monday last. During that time he did have some diarrhea which stopped on its own. On Monday he noted that he developed intermittent leakage of urine, awakening with a wet spot on his underwear. He started to notice a whitish discharge and what he described as a "black spot", apparently within the meatus of the urethra. He cleaned his penis with a wet wipe. He was concerned that he had a tapeworm that was in his penis, as he thought he could see these black spots with a "second layer skin", meaning that there was something within the urethra. This continued through the weekend. On Monday, he noticed swelling of his penis. Concerned that this may be parasitic, somewhat I told him that if chewing tobacco on it it may drive the parasite out. He placed chewing tobacco on the glans of his penis and on the meatus. This was quite painful. Some of the spots on the glans, at about the 4 o'clock position blackened over. He became quite painful, drank a couple shots of vodka and then states that he lost consciousness about 1230. He woke up at about 4:30 PM, was unable to urinate. He reports that he was told that he had been yelling at his parents. Police were called (it appears he was served some eviction papers during that timeframe). He tried to urinate, was on the toilet and fell off the toilet. He is brought to the ED by EMS. In the emergency department he is noted to have swollen erythematous glands. Marcial catheter was eventually passed. He drained over 500 mL of clear urine. Urine analysis was generally unremarkable. He had CT of the abdomen and pelvis which did not show acute findings. The case was discussed with the on-call urologist in [place], who felt this did not represent a Oracio's gangrene. Evaluation revealed white count of 18,000 however, lactate was elevated at 4.8. He was admitted for possible sepsis just after midnight. Patient denies any fever, is felt chilled intermittently. He denies any recent sexual partners. He notes he has had difficulty sleeping. He has chronic rhinorrhea which is unchanged. He thinks his vision may have gotten a bit blurry recently. He is intermittently had some tingling in his chest that goes up into his face. He has had no dyspnea, no cough, no sputum production. No chest pain or tightness. No abdominal pain, no nausea or vomiting. No current diarrhea. He did have some dysuria associated with his lesions. 07/09 Constitutional Vitals: Vital Signs Temp Pulse Resp BP Pulse Ox 99.4 F H 101 H 20 171/105 96 07/08/20 12:00 07/08/20 12:00 07/08/20 12:00 07/08/20 12:00 07/08/20 12:00 Period Temp Pulse Resp BP Sys/Omer Pulse Ox Last 24 Hr 97.6 F-99.4 F 101-128 18-24 132-171/77-105 93-99 Intake and Output 07/08/20 07/08/20 07/08/20 05:59 13:59 21:59 Intake Total 1300 1240 Output Total 1400 Balance -100 1240 Weight 90.01 kg Intake & Output: Intake & Output 07/08/20 07/08/20 07/08/20 05:59 13:59 21:59 Intake Total 1300 1240 Output Total 1400 Balance -100 1240 Weight 90.01 kg Intake: IV 1000 1000 Sodium Chloride 0.9% 1,000 ml @ 1000 1000 125 mls/hr IV .Q8H [facility] Rx#: [id number] Oral 300 240 Output: Urine Catheter Amount 1400 Other: Meal Breakfast Percent of Meal Consumed 100% Feeding Ability Assist with Tray Set Up Urine Appearance Clear Clear Uretheral (Marcial) Cloudy Cloudy Urine Color Straw Straw Uretheral (Marcial) Dark Robina Dark Robina Stool Size Moderate Stool Color Brown Stool Consistency Formed # Bowel Movements 1 Exam: General: Alert, Awake, No acute Distress Eyes/N/T: EOMI, Head/Neck: neck supple, CV: RRR, No murmurs, Pulm: Clear b/l, no wheezing/rhonchi/rales Abd: soft, nontender, +BS x4 : Circumcised male with Marcial catheter in place. Glans erythematous with mild edema. 2 approximately 3 mm dark lesions in the 5:00 location to the meatus. Another, approximately 5 to 6 mm lesion along the edge of the glans about 8:00 from the meatus. This is covered by a fibrinous exudate. Mild tenderness with palpation. Scrotum with some erythema but nontender, testicles nontender Ext: no clubbing/cyanosis/edema Neuro: Alert, no focal deficits, moves all extremities, Skin: warm/dry OBJ DATA Labs CBC & Chem 7: 07/08/20 05:35 07/08/20 05:35 Labs: Abnormal Lab Results 07/08/20 07/08/20 07/08/20 09:19 05:35 05:35 WBC Gran % Lymph % (Auto) Gran # Lymph # (Auto) [place] # (Auto) 1.04 H VBG Lactic Acid Potassium Carbon Dioxide 21 L Anion Gap Creatinine Calcium 8.0 L Urine Protein Urine Ketones Urine RBC Ur Amphetamines Screen Suspect positive A 07/08/20 07/07/20 07/07/20 00:05 19:51 18:40 WBC Gran % Lymph % (Auto) Gran # Lymph # (Auto) [place] # (Auto) VBG Lactic Acid 2.6 H 4.8 H* Potassium 3.0 L Carbon Dioxide 18 L Anion Gap 22.0 H Creatinine 1.3 H Calcium Urine Protein Urine Ketones Urine RBC Ur Amphetamines Screen 07/07/20 07/07/20 18:40 18:39 WBC 18.8 H Gran % 86.3 H Lymph % (Auto) 6.3 L Gran # 16.23 H Lymph # (Auto) 1.[address] [place] # (Auto) 1.30 H VBG Lactic Acid Potassium Carbon Dioxide Anion Gap Creatinine Calcium Urine Protein 30 A Urine Ketones 5/tr A Urine RBC 2 H Ur Amphetamines Screen Meds: Medications Acetaminophen (Tylenol) 650 mg PO Q6HP PRN; Protocol PRN Reason: Per Pain Protocol/Fever > 101 Hydrocodone Bitart/Acetaminophen (Haines 5/325mg) 1 tab PO Q4HP PRN; Protocol PRN Reason: Per Pain Protocol Last Admin: 07/08/20 10:10 Dose: 1 tab Documented by: Docusate Sodium (Colace) 100 mg PO BID [facility] Last Admin: 07/08/20 10:16 Dose: 100 mg Documented by: Enoxaparin Sodium (Lovenox) 40 mg SQ DAILY [facility] Last Admin: 07/08/20 10:16 Dose: 40 mg Documented by: Sodium Chloride (Sodium Chloride 0.9%) 1,000 mls @ 125 mls/hr IV .Q8H [facility] Last Admin: 07/08/20 10:16 Dose: 125 mls/hr Documented by: Ondansetron HCl (Zofran) 4 mg IV Q6HP PRN PRN Reason: Nausea And Vomiting Senna (Senokot) 2 tab PO HS [facility] Sodium Chloride (Saline Flush) 10 ml IV Q8 [facility] Last Admin: 07/08/20 05:03 Dose: Not Given Documented by: A/P Narrative A/P Narrative: A: *Penile lesion: likely HSV -Patient has 2 lesions at approximately 5:00 from the meatus, another larger one at about 8:00. There is blackish discoloration of the 2 smaller lesions, fibrinous exudate on the larger. -Case discussed with Dr. Mcleod, infectious disease. Concern for possible HSV infection. Other STIs in the differential. -unremarkable urine analysis *Leukocytosis: elevated lactate at presentation with anion gap metabolic acidosis. All of these are improving.. However on further history the patient had ingested alcohol, was down for 4 hours by his account. Cannot rule out other coingestions. That may explain his leukocytosis and lactic acidosis. Lactate was normalizing with fluids. Appears nontoxic on exam. -No other source of infection apparent. *CHYNA: normalized with fluids. Again suggest that patient may have had a prerenal state with some dehydration which could have contributed to a lactic acidosis *Substance abuse: -UDS with Amphetamines * P: Swab for HSV 1 and 2, begin therapy if positive. Follow-up GC/chlamydia NAAT that is pending Check RPR Check HIV Stop antibacterials. Follow-up cultures -We will continue to monitor patient throughout the day for any other symptoms. Infectious disease would like to be made aware of any positive lab tests as noted above. He may be stable for discharge tomorrow. -ppx: Lovenox Time Spent With Patient Time: Total time spent is greater than 50% in coordination of care (as documented) at patient's floor/unit and/or counseling patient: QUALITY Stroke Symptom Onset Unknown: No VTE Deep Vein Thrombosis/Pulmonary Embolism Present on Admission: No
[2020-07-08] MEDS ORDERED: cefTRIAXone 2 GM in DEXTROSE 5% IN WATER 50 ML IV SCH (15:00)
--- NOTE | 2020-07-08 19:33 | Discharge Summary ---
Discharge Provider Provider Patient information: Note initiated : 07/08/20 at 7:30 pm Service Date, if different from initiated Date: [] Patient: True Bassett a 50 y/o M admitted on 07/08/20 for penis pain. Chief Complaint: [] Date of admission: 07/08/20 01:12 Discharge date: 07/11/20 Primary care physician: Maged Everett Consults: 07/08/20 00:07 Consult to Physician [CONS] Stat Comment: Consulting Provider: Nadia Lal Reason For Exam: Physician to Consult Discharge Meds Discharge Medications Home Medications bacitracin 1 applic TOPICAL TID 5 Days #1 tube 07/10/20 [Rx Last Taken Unknown] amlodipine 5 mg PO DAILY #30 tab 07/11/20 [Rx Last Taken Unknown] hydrocodone-acetaminophen 1 tab PO Q4HP PRN #20 tab 07/11/20 [Rx Last Taken Unknown] COURSE Hospital Course Hospital course: Interval history: Mr. Bassett is a 50 year old M with minimal past medical history who presents to the ED with complaints of being unable to urinate. History is obtained in speaking with the patient. Case has been discussed with Dr. Renu wharton in the ED as well. Patient states that a week ago Monday, 9 days ago he had a sharp stinging pain throughout the shaft of his penis that went deeper into the groin. It woke him up. It lasted for about 20 minutes then resolved. For the rest of the week he was pain free until Monday last. During that time he did have some diarrhea which stopped on its own. On Monday he noted that he developed intermittent leakage of urine, awakening with a wet spot on his underwear. He started to notice a whitish discharge and what he described as a "black spot", apparently within the meatus of the urethra. He cleaned his penis with a wet wipe. He was concerned that he had a tapeworm that was in his penis, as he thought he could see these black spots with a "second layer skin", meaning that there was something within the urethra. This continued through the weekend. On Monday, he noticed swelling of his penis. Concerned that this may be parasitic, somewhat I told him that if chewing tobacco on it it may drive the parasite out. He placed chewing tobacco on the glans of his penis and on the meatus. This was quite painful. Some of the spots on the glans, at about the 4 o'clock position blackened over. He became quite painful, drank a couple shots of vodka and then states that he lost consciousness about 1230. He woke up at about 4:30 PM, was unable to urinate. He reports that he was told that he had been yelling at his parents. Police were called (it appears he was served some eviction papers during that timeframe). He tried to urinate, was on the toilet and fell off the toilet. He is brought to the ED by EMS. In the emergency department he is noted to have swollen erythematous glands. Marcial catheter was eventually passed. He drained over 500 mL of clear urine. Urine analysis was generally unremarkable. He had CT of the abdomen and pelvis which did not show acute findings. The case was discussed with the on-call urologist in [place], who felt this did not represent a Oracio's gangrene. Evaluation revealed white count of 18,000 however, lactate was elevated at 4.8. He was admitted for possible sepsis just after midnight. Patient denies any fever, is felt chilled intermittently. He denies any recent sexual partners. He notes he has had difficulty sleeping. He has chronic rhinorrhea which is unchanged. He thinks his vision may have gotten a bit blurry recently. He is intermittently had some tingling in his chest that goes up into his face. He has had no dyspnea, no cough, no sputum production. No chest pain or tightness. No abdominal pain, no nausea or vomiting. No current diarrhea. He did have some dysuria associated with his lesions. 07/09 Somewhat poor sleep attributed to the bed and being in the hospital. Waxing and waning penile pain. Labs now unremarkable. Vital signs stable. HSV PCR negative. Chlamydia and gonorrhea. Discussed results of hepatitis serology with Dr. Mcleod. Will order hepatitis B viral DNA PCR and if detectable amounts will have patient follow-up with GI or infectious disease. 07/10 Says he is having some hot flashes otherwise nothing new. States he does not have a place to go. Some relief with the bacitracin cream. HTN, started norvasc. 07/11 Hepatitis B DNA quantitative value and Mycobacterium genitalium PCR pending. Ulcer looks to be improving with granulation tissue. Assessment: *Penile lesion: -Case discussed with Dr. Mcleod, infectious disease. Hepatitis B DNA quantitative value and Mycobacterium genitalium PCR pending -HSV/syphilis/hiv/chlamydia/neisseria negative -unremarkable urine analysis *CHYNA: normalized with fluids. Again suggest that patient may have had a prerenal state with some dehydration which could have contributed to a lactic acidosis *Substance abuse: pt denies recent use but state friend was over recently, states only smoked in past never needles. -UDS with Amphetamines *HTN: started norvasc Discharge diagnosis: Penile lesion suspect HSV, CHYNA, substance abuse Time Spent with Patient Time attestation: Total time spent providing and/or coordinating discharge services: Time spent: Greater than 30 minutes EXAM Constitutional Vitals: Temp Pulse Resp BP Pulse Ox 98.0 F 93 H 20 160/98 97 07/08/20 19:25 07/08/20 19:25 07/08/20 19:25 07/08/20 19:25 07/08/20 19:25 Discharge Data Data Completed and Pending Labs on day of discharge: Labs from last 24 hours 07/08/20 07/08/20 07/08/20 18:40 09:19 08:21 WBC RBC Hgb Hct MCV MCH MCHC RDW Plt Count MPV Gran % Lymph % (Auto) [place] % (Auto) Eos % (Auto) Baso % (Auto) Gran # Lymph # (Auto) [place] # (Auto) Eos # (Auto) Baso # (Auto) VBG Lactic Acid Sodium Potassium Chloride Carbon Dioxide Anion Gap BUN Creatinine GFR Calculation Glucose Uric Acid Calcium Phosphorus Magnesium Total Bilirubin Direct Bilirubin GGT AST ALT Alkaline Phosphatase Lactate Dehydrogenase Total Creatine Kinase Total Protein Albumin Globulin Albumin/Globulin Ratio Triglycerides Procalcitonin 0.08 Urine Color Urine Appearance Urine pH Ur Specific [place] Urine Protein Urine Glucose (UA) Urine Ketones Urine Occult Blood Urine Nitrate Urine Bilirubin Urine Urobilinogen Ur Leukocyte Esterase Urine RBC Urine WBC Ur Squamous Epith Cells Urine Bacteria Hyaline Casts Urine Mucus Ur Culture Indicated? Urine Opiates Screen None detected Ur Opiates Confirm Not Reportable Ur Oxycodone Screen None detected Urine Methadone Screen None detected Ur Methadone Confirm Not Reportable Ur Barbiturates Screen None detected Ur Barbiturate Confirm Not Reportable Ur Phencyclidine Scrn None detected Urine PCP Confirm Not Reportable Ur Amphetamines Screen Suspect positive A U Amphetamines Confirm Not Reportable U Benzodiazepines Scrn None detected U Benzodiazepine Confm Not Reportable Urine Cocaine Screen None detected Urine Cocaine Confirm Not Reportable U Cannabinoids Confirm Not Reportable U Marijuana (THC) Screen None detected Syphilis Serology Hepatitis A Ab Total Pending Hep Bs Antigen Pending Hep Bs Ag Neutralizatn Pending Hep Bs Antibody, Quant Pending Hep B Core Total Ab Pending Hepatitis C Antibody Pending Hep C Ab Signal/Cutoff Pending HCV RNA PCR log IUs/ml Pending HIV 1&2 Ag/Ab, 4th Gen 07/08/20 07/08/20 07/08/20 08:21 08:21 05:35 WBC RBC Hgb Hct MCV MCH MCHC RDW Plt Count MPV Gran % Lymph % (Auto) [place] % (Auto) Eos % (Auto) Baso % (Auto) Gran # Lymph # (Auto) [place] # (Auto) Eos # (Auto) Baso # (Auto) VBG Lactic Acid Sodium Potassium Chloride Carbon Dioxide Anion Gap BUN Creatinine GFR Calculation Glucose Uric Acid Calcium Phosphorus Magnesium Total Bilirubin Direct Bilirubin GGT AST ALT Alkaline Phosphatase Lactate Dehydrogenase Total Creatine Kinase 53 Total Protein Albumin Globulin Albumin/Globulin Ratio Triglycerides Procalcitonin Urine Color Urine Appearance Urine pH Ur Specific [place] Urine Protein Urine Glucose (UA) Urine Ketones Urine Occult Blood Urine Nitrate Urine Bilirubin Urine Urobilinogen Ur Leukocyte Esterase Urine RBC Urine WBC Ur Squamous Epith Cells Urine Bacteria Hyaline Casts Urine Mucus Ur Culture Indicated? Urine Opiates Screen Ur Opiates Confirm Ur Oxycodone Screen Urine Methadone Screen Ur Methadone Confirm Ur Barbiturates Screen Ur Barbiturate Confirm Ur Phencyclidine Scrn Urine PCP Confirm Ur Amphetamines Screen U Amphetamines Confirm U Benzodiazepines Scrn U Benzodiazepine Confm Urine Cocaine Screen Urine Cocaine Confirm U Cannabinoids Confirm U Marijuana (THC) Screen Syphilis Serology Non-reactive Hepatitis A Ab Total Hep Bs Antigen Hep Bs Ag Neutralizatn Hep Bs Antibody, Quant Hep B Core Total Ab Hepatitis C Antibody Hep C Ab Signal/Cutoff HCV RNA PCR log IUs/ml HIV 1&2 Ag/Ab, 4th Gen Non-reactive 07/08/20 07/08/20 07/08/20 05:35 05:35 00:05 WBC 9.5 RBC 4.66 Hgb 14.0 Hct 41.3 MCV 88.6 MCH 30.0 MCHC 33.9 RDW 13.3 Plt Count 267 MPV 10.4 Gran % 68.2 Lymph % (Auto) 16.8 [place] % (Auto) 11.0 Eos % (Auto) 3.6 Baso % (Auto) 0.4 Gran # 6.48 Lymph # (Auto) 1.59 [place] # (Auto) 1.04 H Eos # (Auto) 0.34 Baso # (Auto) 0.04 VBG Lactic Acid 2.6 H Sodium 140 Potassium 3.4 Chloride 107 Carbon Dioxide 21 L Anion Gap 12.0 BUN 8 Creatinine 0.9 GFR Calculation 100 Glucose 84 Uric Acid 5.9 Calcium 8.0 L Phosphorus 3.4 Magnesium 2.1 Total Bilirubin 0.6 Direct Bilirubin < 0.2 GGT 20 AST 14 ALT 20 Alkaline Phosphatase 42 Lactate Dehydrogenase 122 Total Creatine Kinase Total Protein 5.9 Albumin 3.5 Globulin 2.4 Albumin/Globulin Ratio 1.5 Triglycerides 82 Procalcitonin Urine Color Urine Appearance Urine pH Ur Specific [place] Urine Protein Urine Glucose (UA) Urine Ketones Urine Occult Blood Urine Nitrate Urine Bilirubin Urine Urobilinogen Ur Leukocyte Esterase Urine RBC Urine WBC Ur Squamous Epith Cells Urine Bacteria Hyaline Casts Urine Mucus Ur Culture Indicated? Urine Opiates Screen Ur Opiates Confirm Ur Oxycodone Screen Urine Methadone Screen Ur Methadone Confirm Ur Barbiturates Screen Ur Barbiturate Confirm Ur Phencyclidine Scrn Urine PCP Confirm Ur Amphetamines Screen U Amphetamines Confirm U Benzodiazepines Scrn U Benzodiazepine Confm Urine Cocaine Screen Urine Cocaine Confirm U Cannabinoids Confirm U Marijuana (THC) Screen Syphilis Serology Hepatitis A Ab Total Hep Bs Antigen Hep Bs Ag Neutralizatn Hep Bs Antibody, Quant Hep B Core Total Ab Hepatitis C Antibody Hep C Ab Signal/Cutoff HCV RNA PCR log IUs/ml HIV 1&2 Ag/Ab, 4th Gen 07/07/20 07/07/20 07/07/20 19:51 18:40 18:39 WBC RBC Hgb Hct MCV MCH MCHC RDW Plt Count MPV Gran % Lymph % (Auto) [place] % (Auto) Eos % (Auto) Baso % (Auto) Gran # Lymph # (Auto) [place] # (Auto) Eos # (Auto) Baso # (Auto) VBG Lactic Acid 4.8 H* Sodium 143 Potassium 3.0 L Chloride 103 Carbon Dioxide 18 L Anion Gap 22.0 H BUN 10 Creatinine 1.3 H GFR Calculation 64 Glucose 96 Uric Acid Calcium 9.5 Phosphorus Magnesium Total Bilirubin 0.5 Direct Bilirubin GGT AST 27 ALT 30 Alkaline Phosphatase 51 Lactate Dehydrogenase Total Creatine Kinase Total Protein 6.7 Albumin 3.9 Globulin 2.8 Albumin/Globulin Ratio 1.4 Triglycerides Procalcitonin Urine Color Yellow Urine Appearance Clear Urine pH 7.0 Ur Specific [place] 1.019 Urine Protein 30 A Urine Glucose (UA) Negative Urine Ketones 5/tr A Urine Occult Blood Neg Urine Nitrate Neg Urine Bilirubin Neg Urine Urobilinogen Neg Ur Leukocyte Esterase Neg Urine RBC 2 H Urine WBC 2 Ur Squamous Epith Cells 0 Urine Bacteria 0 Hyaline Casts 1 Urine Mucus Few Ur Culture Indicated? No Urine Opiates Screen Ur Opiates Confirm Ur Oxycodone Screen Urine Methadone Screen Ur Methadone Confirm Ur Barbiturates Screen Ur Barbiturate Confirm Ur Phencyclidine Scrn Urine PCP Confirm Ur Amphetamines Screen U Amphetamines Confirm U Benzodiazepines Scrn U Benzodiazepine Confm Urine Cocaine Screen Urine Cocaine Confirm U Cannabinoids Confirm U Marijuana (THC) Screen Syphilis Serology Hepatitis A Ab Total Hep Bs Antigen Hep Bs Ag Neutralizatn Hep Bs Antibody, Quant Hep B Core Total Ab Hepatitis C Antibody Hep C Ab Signal/Cutoff HCV RNA PCR log IUs/ml HIV 1&2 Ag/Ab, 4th Gen 07/07/20 18:39 WBC RBC Hgb Hct MCV MCH MCHC RDW Plt Count MPV Gran % Lymph % (Auto) [place] % (Auto) Eos % (Auto) Baso % (Auto) Gran # Lymph # (Auto) [place] # (Auto) Eos # (Auto) Baso # (Auto) VBG Lactic Acid Sodium Potassium Chloride Carbon Dioxide Anion Gap BUN Creatinine GFR Calculation Glucose Uric Acid Calcium Phosphorus Magnesium Total Bilirubin Direct Bilirubin GGT AST ALT Alkaline Phosphatase Lactate Dehydrogenase Total Creatine Kinase Total Protein Albumin Globulin Albumin/Globulin Ratio Triglycerides Procalcitonin Urine Color Urine Appearance Urine pH Ur Specific [place] Urine Protein Urine Glucose (UA) Urine Ketones Urine Occult Blood Urine Nitrate Urine Bilirubin Urine Urobilinogen Ur Leukocyte Esterase Urine RBC Urine WBC Ur Squamous Epith Cells Urine Bacteria Hyaline Casts Urine Mucus Ur Culture Indicated? Urine Opiates Screen Ur Opiates Confirm Ur Oxycodone Screen Urine Methadone Screen Ur Methadone Confirm Ur Barbiturates Screen Ur Barbiturate Confirm Ur Phencyclidine Scrn Urine PCP Confirm Ur Amphetamines Screen U Amphetamines Confirm U Benzodiazepines Scrn U Benzodiazepine Confm Urine Cocaine Screen Urine Cocaine Confirm U Cannabinoids Confirm U Marijuana (THC) Screen Syphilis Serology Non-reactive Hepatitis A Ab Total Hep Bs Antigen Hep Bs Ag Neutralizatn Hep Bs Antibody, Quant Hep B Core Total Ab Hepatitis C Antibody Hep C Ab Signal/Cutoff HCV RNA PCR log IUs/ml HIV 1&2 Ag/Ab, 4th Gen Discharge Plan Patient/Caregiver Discharge Instructions Activity: increase activity as tolerated Diet: Regular Diet Activity Restrictions/Additional Instructions: referral to see urologist for penile lesion 3-7 days. Prescriptions: New bacitracin 500 unit/gram Ointment 1 applic topical TID 5 Days Qty: 1 RF: 0 hydrocodone-acetaminophen 5-325 mg Tablet 1 tab PO Q4HP PRN (Reason: Per Pain Protocol) Qty: 20 RF: 0 amlodipine 5 mg Tablet 5 mg PO DAILY Qty: 30 RF: 0 Follow Up Plan Follow up with: Maged Everett MD [Primary Care Provider] - Patient Disposition: Home, Self-Care Rehab Potential: Fair Discharge Orders: Discharge Order (Routine); Ordered 07/11/20 Ordered By: Cirilo Camarena [facility] VTE Deep Vein Thrombosis/Pulmonary Embolism Present on Admission: No
[2020-07-08] MEDS: SENNOSIDES 1 TABLET PO SCH (20:38)
[2020-07-09] MEDS: HYDROcodone/APAP 5/325MG TABLET PO PRN ×5 (01:11→22:05)
[2020-07-09] MEDS: 0.9 % SODIUM CHLORIDE 1,000 ML IV SCH (01:12)
[2020-07-09] MEDS: 0.9 % SODIUM CHLORIDE 10 ML SYRINGE IV SCH ×3 (05:14→22:05)
--- NOTE | 2020-07-09 08:24 | Internal Med Progress Note ---
SUBJECTIVE Subjective Patient information: Note initiated : 07/09/20 at 8:20 am Service Date, if different from initiated Date: [] Patient: True Bassett a 50 y/o M admitted on 07/08/20 for penis pain. Chief Complaint: [] Interval history: Mr. Bassett is a 50 year old M with minimal past medical history who presents to the ED with complaints of being unable to urinate. History is obtained in speaking with the patient. Case has been discussed with Dr. Renu wharton in the ED as well. Patient states that a week ago Monday, 9 days ago he had a sharp stinging pain throughout the shaft of his penis that went deeper into the groin. It woke him up. It lasted for about 20 minutes then resolved. For the rest of the week he was pain free until Monday last. During that time he did have some diarrhea which stopped on its own. On Monday he noted that he developed intermittent leakage of urine, awakening with a wet spot on his underwear. He started to notice a whitish discharge and what he described as a "black spot", apparently within the meatus of the urethra. He cleaned his penis with a wet wipe. He was concerned that he had a tapeworm that was in his penis, as he thought he could see these black spots with a "second layer skin", meaning that there was something within the urethra. This continued through the weekend. On Monday, he noticed swelling of his penis. Concerned that this may be parasitic, somewhat I told him that if chewing tobacco on it it may drive the parasite out. He placed chewing tobacco on the glans of his penis and on the meatus. This was quite painful. Some of the spots on the glans, at about the 4 o'clock position blackened over. He became quite painful, drank a couple shots of vodka and then states that he lost consciousness about 1230. He woke up at about 4:30 PM, was unable to urinate. He reports that he was told that he had been yelling at his parents. Police were called (it appears he was served some eviction papers during that timeframe). He tried to urinate, was on the toilet and fell off the toilet. He is brought to the ED by EMS. In the emergency department he is noted to have swollen erythematous glands. Marcial catheter was eventually passed. He drained over 500 mL of clear urine. Urine analysis was generally unremarkable. He had CT of the abdomen and pelvis which did not show acute findings. The case was discussed with the on-call urologist in [place], who felt this did not represent a Oracio's gangrene. Evaluation revealed white count of 18,000 however, lactate was elevated at 4.8. He was admitted for possible sepsis just after midnight. Patient denies any fever, is felt chilled intermittently. He denies any recent sexual partners. He notes he has had difficulty sleeping. He has chronic rhinorrhea which is unchanged. He thinks his vision may have gotten a bit blurry recently. He is intermittently had some tingling in his chest that goes up into his face. He has had no dyspnea, no cough, no sputum production. No chest pain or tightness. No abdominal pain, no nausea or vomiting. No current diarrhea. He did have some dysuria associated with his lesions. 07/09 Somewhat poor sleep attributed to the bed and being in the hospital. Waxing and waning penile pain. Labs now unremarkable. Vital signs stable. HSV PCR negative. Chlamydia and gonorrhea. Review of Systems: denies headache/fever/chills/nausea/vomiting/chest or abdominal pain/ cough/dyspnea/diarrhea. Otherwise see above. Constitutional Vitals: Vital Signs Temp Pulse Resp BP Pulse Ox 98.3 F 86 16 154/102 99 07/09/20 06:52 07/09/20 06:52 07/09/20 06:52 07/09/20 06:52 07/09/20 06:52 Period Temp Pulse Resp BP Sys/Omer Pulse Ox Last 24 Hr 97.8 F-99.4 F 86-101 16-20 143-171/98-105 96-99 Intake and Output 07/08/20 07/09/20 07/09/20 21:59 05:59 13:59 Intake Total 1800 850 Output Total 2300 1700 Balance -500 -850 Weight 90.293 kg Intake & Output: Intake & Output 07/08/20 07/09/20 07/09/20 21:59 05:59 13:59 Intake Total 1800 850 Output Total 2300 1700 Balance -500 -850 Weight 90.293 kg Intake: IV 1000 850 Sodium Chloride 0.9% 1,000 ml @ 1000 850 125 mls/hr IV .Q8H [facility] Rx#: [id number] Oral 800 Output: Urine Catheter Amount 2300 1700 Other: Urine Appearance Clear Clear Uretheral (Marcial) Cloudy Urine Color Pale Pale Uretheral (Marcial) Dark [place] Urine Odor Normal Normal Stool Size Moderate Stool Color Brown Stool Consistency Formed Exam: General: Alert, Awake, No acute Distress Eyes/N/T: EOMI, Head/Neck: neck supple, CV: RRR, No murmurs, Pulm: Clear b/l, no wheezing/rhonchi/rales Abd: soft, nontender, +BS x4 : Circumcised male with Marcial catheter in place. Glans erythematous with mild edema. glans penis with ulceration from 4:00 to 7:00 with Mild tenderness with palpation. Scrotum with some erythema but nontender, testicles nontender Ext: no clubbing/cyanosis/edema Neuro: Alert, no focal deficits, moves all extremities, Skin: warm/dry OBJ DATA Labs CBC & Chem 7: 07/08/20 05:35 07/08/20 05:35 Labs: Abnormal Lab Results 07/08/20 07/08/20 07/08/20 09:19 05:35 05:35 WBC Gran % Lymph % (Auto) Gran # Lymph # (Auto) [place] # (Auto) 1.04 H VBG Lactic Acid Potassium Carbon Dioxide 21 L Anion Gap Creatinine Calcium 8.0 L Urine Protein Urine Ketones Urine RBC Ur Amphetamines Screen Suspect positive A 07/08/20 07/07/20 07/07/20 00:05 19:51 18:40 WBC Gran % Lymph % (Auto) Gran # Lymph # (Auto) [place] # (Auto) VBG Lactic Acid 2.6 H 4.8 H* Potassium 3.0 L Carbon Dioxide 18 L Anion Gap 22.0 H Creatinine 1.3 H Calcium Urine Protein Urine Ketones Urine RBC Ur Amphetamines Screen 07/07/20 07/07/20 18:40 18:39 WBC 18.8 H Gran % 86.3 H Lymph % (Auto) 6.3 L Gran # 16.23 H Lymph # (Auto) 1.18 L [place] # (Auto) 1.30 H VBG Lactic Acid Potassium Carbon Dioxide Anion Gap Creatinine Calcium Urine Protein 30 A Urine Ketones 5/tr A Urine RBC 2 H Ur Amphetamines Screen Meds: Medications Acetaminophen (Tylenol) 650 mg PO Q6HP PRN; Protocol PRN Reason: Per Pain Protocol/Fever > 101 Hydrocodone Bitart/Acetaminophen ([place] 5/325mg) 1 tab PO Q4HP PRN; Protocol PRN Reason: Per Pain Protocol Last Admin: 07/09/20 05:18 Dose: 1 tab Documented by: Docusate Sodium (Colace) 100 mg PO BID [facility] Last Admin: 07/08/20 20:40 Dose: 100 mg Documented by: Enoxaparin Sodium (Lovenox) 40 mg SQ DAILY [facility] Last Admin: 07/08/20 10:16 Dose: 40 mg Documented by: Ondansetron HCl (Zofran) 4 mg IV Q6HP PRN PRN Reason: Nausea And Vomiting Senna (Senokot) 2 tab PO HS [facility] Last Admin: 07/08/20 20:38 Dose: 2 tab Documented by: Sodium Chloride (Saline Flush) 10 ml IV Q8 [facility] Last Admin: 07/09/20 05:14 Dose: Not Given Documented by: A/P Assessment and plan (1) Penile lesion: Status: Acute Narrative A/P Narrative: A: *Penile lesion: -Case discussed with Dr. Mcleod, infectious disease. -HSV/syphilis/hiv negative -unremarkable urine analysis *Leukocytosis: elevated lactate at presentation with anion gap metabolic acidosis. All of these are improving.. However on further history the patient had ingested alcohol, was down for 4 hours by his account. Cannot rule out other coingestions. That may explain his leukocytosis and lactic acidosis. Lactate was normalizing with fluids. Appears nontoxic on exam. -No other source of infection apparent. *CHYNA: normalized with fluids. Again suggest that patient may have had a prerenal state with some dehydration which could have contributed to a lactic acidosis *Substance abuse: -UDS with Amphetamines * P: Follow-up GC/chlamydia NAAT that is pending antibacterials stopped after d/w ID Follow-up cultures -We will continue to monitor patient throughout the day for any other symptoms. Infectious disease would like to be made aware of any positive lab tests as noted above. -ppx: Lovenox Time Spent With Patient Time: Total time spent is greater than 50% in coordination of care (as documented) at patient's floor/unit and/or counseling patient: QUALITY Stroke Symptom Onset Unknown: No VTE Deep Vein Thrombosis/Pulmonary Embolism Present on Admission: No
[2020-07-09] MEDS: ENOXAPARIN 40 MG/0.4 ML SYRINGE SQ SCH (09:22)
[2020-07-09] MEDS: DOCUSATE SODIUM 100 MG CAPSULE PO SCH ×2 (09:22→22:04)
[2020-07-09 15:12] LABS: Hepatitis B Surface Antigen NON-REACTIVE (NON-REACTIVE); Hepatitis C Virus Antibody NON-REACTIVE (NON-REACTIVE)
--- NOTE | 2020-07-09 15:29 | General Surgery Consult Note ---
HPI Data of Consult Primary Care Provider: Maged Everett Consult Narrative Patient Information: Note initiated : 07/09/20 at 3:25 pm Service Date, if different from initiated Date: [] Patient: True Bassett 50 y/o M admitted on 07/08/20 for penis pain. Chief Complaint: [Retention of urine, relieved after inserting a Silastic catheter. Grade 1 / Grade 2 Epithelial ulceration around tip of circumcised glans penis. I reviewed his CM [employer] EHR since admission and subsequent progress. I saw this gentleman along with Nelia ALCANTAR In Patient wound care nurse. cc:: CC: Nadia Lal PFSH PFSH All Active Problems (Updated 07/08/20 @ 08:15 by Nadia Lal MD) Acute retention of urine (Acute) Elevated WBC count (Acute) Elevated lactic acid level (Acute) Sinus tachycardia (Acute) Cellulitis, penis (Acute) Penile lesion (Acute) Medical History (Updated 07/08/20 @ 08:15 by Nadia Lal MD) Femur fracture, right (Acute) Surgical History (Updated 07/08/20 @ 08:15 by Nadia Lal MD) S/P ORIF (open reduction internal fixation) fracture (Acute) Family History (Updated 07/08/20 @ 08:16 by Nadia Lal MD) Mother Hypertension Atrial fibrillation Father Hypertension Prostate cancer Social History (Updated 07/08/20 @ 08:17 by Nadia Lal MD) smoking status: Smokeless tobacco alcohol intake frequency: a few times a month MEDS/ALLERGIES Home Medications and Allergies Home Medications Medication Instructions Recorded Confirmed Type acyclovir 400 mg PO TID #24 tab 07/08/20 Rx Allergies Allergy/AdvReac Type Severity Reaction Status Date / Time No Known Drug Allergies Allergy Unverified 07/08/20 06:06 Physical Examination Vital Signs Vital signs: Temp Pulse Resp BP Pulse Ox 98.5 F 95 H 16 145/100 97 07/09/20 12:00 07/09/20 12:00 07/09/20 12:00 07/09/20 12:00 07/09/20 12:00 General physical appearance General physical exam: well developed, well nourished, no distress and no pain Eyes Eye exam: PERRL and normal ocular movement ENT ENT exam: normal pinna, normal nares and no congestion Head Head exam IM: Present atraumatic and normocephalic Neck Neck exam: no masses, trachea midline, no lymphadenopathy and no venous distension Cardiovascular Cardiovascular exam IM: Present normal rate and rhythm Respiratory Respiratory exam: normal respiratory effort and clear to auscultation Abdomen Abdomen: Present non tender and bowel sounds Genitourinary Genitourinary (Male): Present other (Circumcised. Both testes in scrotum, Negative for hydrocee or groin lymphadenopathy. Depigmented ulceration around the catheter at tip of glan penis. NO purulence, NO blood .) Integumentary Integumentary: Present other (Epidermal ulceration around catheter at tip of yoli penis. ) Neurologic Neurologic: Present normal coordination and normal sensation Musculoskeletal Musculoskeletal: Present normal posture Psychiatric Psychiatric: Present oriented to person, oriented to place, speech is normal and other (Resting comfortably. Wants to be left alone and sleep. ) Results Labs Result diagrams: 07/08/20 05:35 07/08/20 05:35 Labs: Abnormal lab results 07/08/20 Range/Units 08:21 Hep Bs Antibody, Quant <5 A (> OR = 10) mIU/mL Hep B Core Total Ab Reactive A (NON-REACTIVE) All other labs normal. A/P Narrative A/P Narrative: Assessment: Iatrogenic traumatic ulceration around the urinary catheter at tip of glans penis. Negative work up thus far for STD, U/A/ Abnormal labs are stabilizing. Imaging studies inconclusive. Has NOT seen a UROLOGIST as yet. ??? Cystoscopy for intravesical pathology / findings, Plan: Symptomatic treatment and monitor. Encourage PO fluids. Local wound care, Clean with soap and water , Bacitracin ointment TID. Will follow along with Hospitalist physician. Time Spent With Patient Time: Total time spent is greater than 50% in coordination of care (as documented) at patient's floor/unit and/or counseling patient: Total time spent with greater than 50% in coordination of care (as documented) at patient's floor/unit and/or counseling patient:: 15 - 24 minutes
[2020-07-09] MEDS ORDERED: LABETALOL 5 MG/ML ML IV PRN (17:34)
[2020-07-09] MEDS: BACITRACIN TOPICAL OINT 15 GM TUBE TOPICAL SCH ×2 (18:07→22:04)
[2020-07-09] MEDS: SENNOSIDES 1 TABLET PO SCH (22:04)
[2020-07-09] MEDS: amLODIPine 5 MG TABLET PO SCH (22:04)
[2020-07-10] MEDS: HYDROcodone/APAP 5/325MG TABLET PO PRN ×6 (01:57→23:43)
[2020-07-10] MEDS: 0.9 % SODIUM CHLORIDE 10 ML SYRINGE IV SCH ×3 (06:12→20:58)
[2020-07-10] MEDS: hydrALAZINE 20 MG/ML VIAL IV PRN ×3 (07:16→15:29)
--- NOTE | 2020-07-10 07:58 | Internal Med Progress Note ---
SUBJECTIVE Subjective Patient information: Note initiated : 07/10/20 at 7:54 am Service Date, if different from initiated Date: [] Patient: True Bassett a 50 y/o M admitted on 07/08/20 for penis pain. Chief Complaint: [] Interval history: Interval history: Mr. Bassett is a 50 year old M with minimal past medical history who presents to the ED with complaints of being unable to urinate. History is obtained in speaking with the patient. Case has been discussed with Dr. Sears up in the ED as well. Patient states that a week ago Monday, 9 days ago he had a sharp stinging pain throughout the shaft of his penis that went deeper into the groin. It woke him up. It lasted for about 20 minutes then resolved. For the rest of the week he was pain free until Monday last. During that time he did have some diarrhea which stopped on its own. On Monday he noted that he developed intermittent leakage of urine, awakening with a wet spot on his underwear. He started to notice a whitish discharge and what he described as a "black spot", apparently within the meatus of the urethra. He cleaned his penis with a wet wipe. He was concerned that he had a tapeworm that was in his penis, as he thought he could see these black spots with a "second layer skin", meaning that there was something within the urethra. This continued through the weekend. On Monday, he noticed swelling of his penis. Concerned that this may be parasitic, somewhat I told him that if chewing tobacco on it it may drive the parasite out. He placed chewing tobacco on the glans of his penis and on the meatus. This was quite painful. Some of the spots on the glans, at about the 4 o'clock position blackened over. He became quite painful, drank a couple shots of vodka and then states that he lost consciousness about 1230. He woke up at about 4:30 PM, was unable to urinate. He reports that he was told that he had been yelling at his parents. Police were called (it appears he was served some eviction papers during that timeframe). He tried to urinate, was on the toilet and fell off the toilet. He is brought to the ED by EMS. In the emergency department he is noted to have swollen erythematous glands. Marcial catheter was eventually passed. He drained over 500 mL of clear urine. Urine analysis was generally unremarkable. He had CT of the abdomen and pelvis which did not show acute findings. The case was discussed with the on-call urologist in [place], who felt this did not represent a Oracio's gangrene. Evaluation revealed white count of 18,000 however, lactate was elevated at 4.8. He was admitted for possible sepsis just after midnight. Patient denies any fever, is felt chilled intermittently. He denies any recent sexual partners. He notes he has had difficulty sleeping. He has chronic rhinorrhea which is unchanged. He thinks his vision may have gotten a bit blurry recently. He is intermittently had some tingling in his chest that goes up into his face. He has had no dyspnea, no cough, no sputum production. No chest pain or tightness. No abdominal pain, no nausea or vomiting. No current diarrhea. He did have some dysuria associated with his lesions. 07/09 Somewhat poor sleep attributed to the bed and being in the hospital. Waxing and waning penile pain. Labs now unremarkable. Vital signs stable. HSV PCR negative. Chlamydia and gonorrhea. Discussed results of hepatitis serology with Dr. Mcleod. Will order hepatitis B viral DNA PCR and if detectable amounts will have patient follow-up with GI or infectious disease. 07/10 Says he is having some hot flashes otherwise nothing new. States he does not have a place to go. Some relief with the bacitracin cream. Review of Systems: denies headache/fever/chills/nausea/vomiting/chest or abdominal pain/cough/dyspnea/diarrhea. Otherwise see above. Constitutional Vitals: Vital Signs Temp Pulse Resp BP Pulse Ox 98.5 F 84 16 162/107 98 07/10/20 07:30 07/10/20 07:30 07/10/20 07:30 07/10/20 07:30 07/10/20 07:30 Period Temp Pulse Resp BP Sys/Omer Pulse Ox Last 24 Hr 98.4 F-98.7 F 80-103 12-16 142-165/88-107 96-99 Intake and Output 07/09/20 07/10/20 07/10/20 21:59 05:59 13:59 Intake Total 680 Output Total 700 1425 Balance -20 -1425 Weight 90.9 kg Intake & Output: Intake & Output 07/09/20 07/10/20 07/10/20 21:59 05:59 13:59 Intake Total 680 Output Total 700 1425 Balance -5 Weight 90.9 kg Intake: Oral 680 Output: Urine Catheter Amount 700 1425 Other: Meal Dinner Percent of Meal Consumed 100% Feeding Ability Independent Urine Appearance Clear Clear Uretheral (Marcial) Clear Urine Color Pale Pale Uretheral (Marcial) Bright Yellow Urine Odor Normal Normal Exam: General: Alert, Awake, No acute Distress Eyes/N/T: EOMI, Head/Neck: neck supple, CV: RRR, No murmurs, Pulm: Clear b/l, no wheezing/rhonchi/rales Abd: soft, nontender, +BS x4 : Circumcised male with Marcial catheter in place. Glans erythematous with mild edema. glans penis with ulceration from 4:00 to 7:00 and granulation tissue with Mild tenderness with palpation. Scrotum with some erythema but nontender, testicles nontender Ext: no clubbing/cyanosis/edema Neuro: Alert, no focal deficits, moves all extremities, Skin: warm/dry OBJ DATA Labs CBC & Chem 7: 07/08/20 05:35 07/08/20 05:35 Labs: Abnormal Lab Results 07/08/20 07/08/20 07/08/20 09:19 08:21 05:35 WBC Gran % Lymph % (Auto) Gran # Lymph # (Auto) [place] # (Auto) VBG Lactic Acid Potassium Carbon Dioxide 21 L Anion Gap Creatinine Calcium 8.0 L Urine Protein Urine Ketones Urine RBC Ur Amphetamines Screen Suspect positive A Hep Bs Antibody, Quant <5 A Hep B Core Total Ab Reactive A 07/08/20 07/08/20 07/07/20 05:35 00:05 19:51 WBC Gran % Lymph % (Auto) Gran # Lymph # (Auto) [place] # (Auto) 1.04 H VBG Lactic Acid 2.6 H 4.8 H* Potassium Carbon Dioxide Anion Gap Creatinine Calcium Urine Protein Urine Ketones Urine RBC Ur Amphetamines Screen Hep Bs Antibody, Quant Hep B Core Total Ab 07/07/20 07/07/20 07/07/20 18:40 18:40 18:39 WBC 18.8 H Gran % 86.3 H Lymph % (Auto) 6.3 L Gran # 16.23 H Lymph # (Auto) 1.18 L [place] # (Auto) 1.30 H VBG Lactic Acid Potassium 3.0 L Carbon Dioxide 18 L Anion Gap 22.0 H Creatinine 1.3 H Calcium Urine Protein 30 A Urine Ketones 5/tr A Urine RBC 2 H Ur Amphetamines Screen Hep Bs Antibody, Quant Hep B Core Total Ab Meds: Medications Acetaminophen (Tylenol) 650 mg PO Q6HP PRN; Protocol PRN Reason: Per Pain Protocol/Fever > 101 Hydrocodone Bitart/Acetaminophen ([place] 5/325mg) 1 tab PO Q4HP PRN; Protocol PRN Reason: Per Pain Protocol Last Admin: 07/10/20 06:11 Dose: 1 tab Documented by: Amlodipine Besylate (Norvasc) 2.5 mg PO DAILY [facility] Last Admin: 07/09/20 22:04 Dose: 2.5 mg Documented by: Bacitracin (Bacitracin Topical Oint) 1 dose TOPICAL TID [facility] Last Admin: 07/09/20 22:04 Dose: 1 dose Documented by: Docusate Sodium (Colace) 100 mg PO BID [facility] Last Admin: 07/09/20 22:04 Dose: 100 mg Documented by: Enoxaparin Sodium (Lovenox) 40 mg SQ DAILY [facility] Last Admin: 07/09/20 09:22 Dose: 40 mg Documented by: Hydralazine HCl (Apresoline) 0 mg IV Q2HP PRN PRN Reason: Hypertension Last Admin: 07/10/20 07:16 Dose: 10 mg Documented by: Labetalol HCl (Trandate) 0 mg IV Q2HP PRN PRN Reason: Hypertension Ondansetron HCl (Zofran) 4 mg IV Q6HP PRN PRN Reason: Nausea And Vomiting Senna (Senokot) 2 tab PO HS [facility] Last Admin: 07/09/20 22:04 Dose: 2 tab Documented by: Sodium Chloride (Saline Flush) 10 ml IV Q8 [facility] Last Admin: 07/10/20 06:12 Dose: 10 ml Documented by: A/P Narrative A/P Narrative: *Penile lesion: -Case discussed with Dr. Mcleod, infectious disease. -HSV/syphilis/hiv/chlamydia/neisseria negative -unremarkable urine analysis *Leukocytosis: elevated lactate at presentation with anion gap metabolic acidosis. All of these are improving.. However on further history the patient had ingested alcohol, was down for 4 hours by his account. Cannot rule out other coingestions. That may explain his leukocytosis and lactic acidosis. Lactate was normalizing with fluids. Appears nontoxic on exam. -No other source of infection apparent. *CHYNA: normalized with fluids. Again suggest that patient may have had a prerenal state with some dehydration which could have contributed to a lactic acidosis *Substance abuse: pt denies recent use but state friend was over recently, states only smoked in past never needles. -UDS with Amphetamines P: Follow-up wound cx, and myco gen antibacterials stopped after d/w ID, topical bacitracin per wound care Discussed results of hepatitis serology with Dr. Mcleod. Will order hepatitis B viral DNA PCR and if detectable amounts will have patient follow-up with GI or infectious disease. -We will continue to monitor patient throughout the day for any other symptoms. Infectious disease would like to be made aware of any positive lab tests as noted above. -ppx: Lovenox Time Spent With Patient Time: Total time spent is greater than 50% in coordination of care (as documented) at patient's floor/unit and/or counseling patient: QUALITY Stroke Symptom Onset Unknown: No VTE Deep Vein Thrombosis/Pulmonary Embolism Present on Admission: No
[2020-07-10] MEDS: amLODIPine 5 MG TABLET PO SCH (09:15)
[2020-07-10] MEDS: DOCUSATE SODIUM 100 MG CAPSULE PO SCH ×2 (09:15→20:57)
[2020-07-10] MEDS: ENOXAPARIN 40 MG/0.4 ML SYRINGE SQ SCH (09:17)
[2020-07-10] MEDS: BACITRACIN TOPICAL OINT 15 GM TUBE TOPICAL SCH ×3 (09:20→20:58)
[2020-07-10 14:19] LABS: Anti-Nuclear Antibody Pattern HOMOGENEOUS
[2020-07-10] MEDS ORDERED: methylPREDNISolone SOD SUCC 125 MG/2 ML VIAL IV ONE (14:58)
[2020-07-10] MEDS: ACYCLOVIR 400 MG TABLET PO SCH ×2 (15:20→20:57)
[2020-07-10] MEDS ORDERED: amLODIPine 5 MG TABLET PO ONE (16:27)
[2020-07-10] MEDS ORDERED: HYDROcodone/APAP 5/325MG TABLET PO ONE (19:34)
[2020-07-10] MEDS: SENNOSIDES 1 TABLET PO SCH (20:57)
[2020-07-11] MEDS: HYDROcodone/APAP 5/325MG TABLET PO PRN ×4 (03:42→16:25)
[2020-07-11] MEDS: 0.9 % SODIUM CHLORIDE 10 ML SYRINGE IV SCH ×2 (05:40→16:13)
[2020-07-11] MEDS: hydrALAZINE 20 MG/ML VIAL IV PRN (07:06)
[2020-07-11] MEDS: DOCUSATE SODIUM 100 MG CAPSULE PO SCH (08:24)
[2020-07-11] MEDS: ACYCLOVIR 400 MG TABLET PO SCH ×2 (08:24→16:26)
[2020-07-11] MEDS: ENOXAPARIN 40 MG/0.4 ML SYRINGE SQ SCH (08:26)
[2020-07-11] MEDS: BACITRACIN TOPICAL OINT 15 GM TUBE TOPICAL SCH ×2 (08:31→16:24)
[2020-07-11] MEDS ORDERED: amLODIPine 5 MG TABLET PO SCH (09:00)
[2020-07-11] MEDS ORDERED: AZITHROMYCIN 250 MG TABLET PO ONE (12:33)
[2020-07-14 08:31] LABS: Hepatitis B Virus DNA <1.00 NOT DETECTED; Hepatitis B Virus DNA <10 NOT DETECTED IU/mL
[2020-07-15 13:42] LABS: Myeloperoxidase ABS <1.0 AI (<1.0); Proteinase-3-AB <1.0 AI (<1.0)
[2020-07-15 13:43] LABS: SM Antibody <1.0 NEG AI (<1.0 NEG)
== END 2020-07-11 17:55 | disposition home or self-care (01) | DRG 729 ==
LOC: ED 17:36 → MEDSUR 07-08 01:12
PROVIDERS: ADMIT Internal Medicine; ATTEND Internal Medicine